=== PATIENT | male | born 1980 | race Caucasian/White ===

== ENCOUNTER → 2017-05-09 12:03 | Day surgery (SDC) | payer OTHER ==
[2017-05-09 15:02] LABS: Body Fluid Appearance Clear
[2017-05-09 15:03] LABS: BF RBC Count #1 0; BF RBC Count #2 0; BF WBC Count #1 0; BF WBC Count #2 0; Body Fluid WBC 0 /mcL; RBC counts within 6%? Yes; WBC counts within 15%? Yes
[2017-05-09 15:21] LABS: Body Fluid Total Cells Counted 2
--- NOTE | 2017-05-09 23:03 | PM ---
CC: Brent Tejeda MD * PAIN MANAGEMENT NOTE: DATE OF VISIT: 05/09/17 HISTORY: I had the pleasure of seeing Mr. Alfredo Del Angel today in the operating room. Mr. Del Angel was referred by Dr. Tejeda from Neurology for lumbar puncture. The patient did undergo one prior lumbar puncture 3 years ago for similar weakness in the lower extremities and issues with gait and balance as well as general malaise. He was subsequently diagnosed with multiple sclerosis and is currently being treated for this disorder by both Dr. Tejeda locally as well as by his neurologist at [facility]. 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 He has subsequently been referred for repeat lumbar puncture today. He was recently imaged and found to have no intracranial space occupying lesions. He denies use of anticoagulants and notes no history of coagulopathies. He did not have any major adverse effects with most recent lumbar puncture 3 years ago, which he feels was also performed by myself. He notes no recent fever or chills, but does note malaise and overall fatigue as well as worsening neurological symptoms in his lower extremities, which was previously thought to be secondary to Lyme. ALLERGIES: He is allergic to PENICILLIN. ASSESSMENT: Mr. Alfredo Del Angel is a pleasant 36-year-old man who presents for lumbar puncture today. He does not currently have any contraindications to the procedure, so I will proceed as requested. The risks and benefits of the procedure were discussed with the patient, who verbalized understanding and elected to proceed. He may follow up with myself as needed and with Dr. Tejeda and his [facility] neurologist as scheduled. He has requested that the results of his final fluid analysis be sent to both Dr. Tejeda as well as to his neurologist at [facility]. The patient was placed in the seated position. Consent was discussed and obtained. The risks and benefits of the procedure were discussed with the patient. He denies any current use of anticoagulants, history of coagulopathies. His back is free of redness, lesions, open wounds or ulcerations. ChloraPrep was used to cleanse his back. His back was then sterilely prepped and draped. 2.5 cc of 1% lidocaine plain was used to anesthetize the skin and subcutaneous tissues over his lumbar spine. The L3-4 interspace was palpated and approximated anatomically. Subsequently, a 20-gauge introducer along with a 25- gauge Pencan needle was used to access the intrathecal space. A total of 13 cc of CSF was aspirated and appeared crystal clear and free flowing. The patient did not suffer any paresthesias or focal neurological deficits and tolerated the procedure well. His vital signs remained stable. Preoperative to the procedure, his vital signs were blood pressure 148/93, pulse 85, respiratory rate 16, oxygen saturation 98%, and post-procedure, his blood pressure was found to be 140/97, oxygen saturation 98%, heart rate 83, and respiratory rate again was 16. He was subsequently discharged from the procedure area of the operating room in stable condition and advised to contact us with any questions or concern. His back was dressed with a Band-Aid. He was asked to avoid submerging his back today in water and to avoid activities such as swimming, tub bath and hot tubs. He verbalized understanding of this. He will follow up with me as needed. Thank you for allowing me to participate in the care of your patient, please do not hesitate to call with further questions. [id number]/[facility] #: [id number] [place]
[2017-05-16 10:18] LABS: Albumin 5460 mg/dL; CSF Albumin 35.4 mg/dL (<=27.0); CSF IgG/Albumin Ratio 0.09 (<=0.21); CSF Immunoglobulin G Index 0.64 (<=0.85); CSF Immunoglobulin G Synthesis 4.73 mg/24 h (<=12); Immunoglobulin G 741 mg/dL (767 - 1590); Serum IgG/Albumin Ratio 0.14 (<=0.40)
[2017-05-16 15:50] LABS: CSF Oligoclonal Bands 7 bands; Oligoclonal Proteins Interpret 6 bands (<4); Serum Oligoclonal Bands 1 bands
== END | disposition home or self-care (01) ==
LOC: OR 12:03
PROVIDERS: ATTEND Anesthesiology Pain Medicine
DX: A69.20 Lyme disease, unspecified (principal); G35 Multiple sclerosis; Z88.0 Allergy status to penicillin
CPT/HCPCS: 36415; 62270; 82784; 83916; 84157; 86617; 87476; 88112; 89051